=== PATIENT | male | born 1990 | race Caucasian/White ===

== ENCOUNTER 2016-10-03 09:55 | Inpatient (IN) | payer BC, OTHER ==
[~2016-10-03 09:55] MED LIST: DEXAMETHASONE SOD PHOSPHATE INJ 4 MG/1 ML VIAL ONE; ONDANSETRON HCL INJ/PF 4 MG/2 ML SDV ONE; ROCURONIUM BROMIDE INJ 50 MG/5 ML VIAL IV ONE; SUCCINYLCHOLINE CHLORIDE INJ 200 MG/10 ML VIAL ONE
--- NOTE | 2016-10-03 10:06 | ER Document Report ---
ED Medical Screen (RME) - General Chief Complaint: Abdominal Pain Stated Complaint: STOMACH PAIN Notes: 25 yo male c/o bilat flank pain followed by epigastric pain since last night. no fever, + nausea, no vomiting or diarrhea. no urinary symptoms. Abdomen soft, no guarding TRAVEL OUTSIDE OF THE [place] IN LAST 30 DAYS: No - Related Data Allergies/Adverse Reactions: amoxicillin Adverse Reaction (Verified 10/03/16 09:58) Past Medical History - Social History Drug Abuse: None Renal/ Medical History: Denies: Hx Peritoneal Dialysis
[2016-10-03 10:23] LABS: ABSOLUTE EOSINOPHILS # (AUTO) 0.2 10^3/uL (0.0-0.6); ABSOLUTE LYMPHOCYTES (AUTO) 1.1 10^3/uL (0.5-4.7); ABSOLUTE MONOCYTES (AUTO) 0.6 10^3/uL (0.1-1.4); ABSOLUTE NEUT (AUTO) 10.2 10^3/uL (1.7-8.2); BASOPHILS % (AUTO) 0.3 % (0-2); EOSINOPHILS % (AUTO) 1.9 % (0-6); HEMATOCRIT 45.4 % (37.9-51.0); HEMOGLOBIN 15.2 g/dL (13.5-17.0); HGB HCT DIFFERENCE 0.2; LYMPHOCYTES % (AUTO) 9.2 % (13-45); MEAN CORPUSCULAR HEMOGLOBIN 29.2 pg (27.0-33.4); MEAN CORPUSCULAR HGB CONC 33.5 g/dL (32.0-36.0); MEAN CORPUSCULAR VOLUME 87 fl (80-97); MONOCYTES % (AUTO) 5.2 % (3-13); RED BLOOD COUNT 5.23 10^6/uL (4.35-5.55); RED CELL DISTRIBUTION WIDTH 13.5 % (11.5-14.0); SEGMENTED NEUTROPHILS % (AUTO) 83.4 % (42-78); WHITE BLOOD COUNT 12.2 10^3/uL (4.0-10.5)
[2016-10-03 10:35] LABS: ALANINE AMINOTRANSFERASE 28 U/L (21-72); ALBUMIN 4.6 g/dL (3.5-5.0); ALKALINE PHOSPHATASE 72 U/L (38-126); ANION GAP 11 (5-19); ASPARTATE AMINO TRANSFERASE 21 U/L (17-59); BILIRUBIN,DIRECT 0.1 mg/dL (0.0-0.4); BILIRUBIN,TOTAL 0.6 mg/dL (0.2-1.3); BLOOD UREA NITROGEN 19 mg/dL (7-20); CALCIUM 9.4 mg/dL (8.4-10.2); CARBON DIOXIDE 27 mmol/L (22-30); CHLORIDE 102 mmol/L (98-107); GLUCOSE 98 mg/dL (75-110); POTASSIUM 4.2 mmol/L (3.6-5.0); SODIUM 139.5 mmol/L (137-145); TOTAL PROTEIN 7.2 g/dL (6.3-8.2)
--- NOTE | 2016-10-03 12:25 | ER Document Report ---
ED General - General Chief Complaint: Abdominal Pain Stated Complaint: STOMACH PAIN Mode of Arrival: Ambulatory Information source: Patient Notes: 25-year-old male presents with complaints of epigastric abdominal pain with bilateral flank pain. Patient denies any fevers or chills nausea vomiting or diarrhea. Patient denies any gastric reflux TRAVEL OUTSIDE OF THE [place] IN LAST 30 DAYS: No - HPI Onset: Yesterday Onset/Duration: Persistent Quality of pain: Achy Severity: Mild Pain Level: 1 Associated symptoms: None Exacerbated by: Denies Relieved by: Denies Similar symptoms previously: No Recently seen / treated by doctor: No - Related Data Allergies/Adverse Reactions: amoxicillin Adverse Reaction (Verified 10/03/16 09:58) Past Medical History - Social History Smoking Status: Current Every Day Smoker Cigarette use (# per day): Yes Chew tobacco use (# tins/day): No Smoking Education Provided: No Drug Abuse: None Family History: Reviewed & Not Pertinent Patient has suicidal ideation: No Patient has homicidal ideation: No Renal/ Medical History: Denies: Hx Peritoneal Dialysis Review of Systems - Review of Systems Notes: REVIEW OF SYSTEMS: CONSTITUTIONAL : Denies fever, chills, or sweats. Denies recent illness. EENT: Denies eye, ear, throat, or mouth pain or symptoms. Denies nasal or sinus congestion or discharge. Denies throat, tongue, or mouth swelling or difficulty swallowing. CARDIOVASCULAR: Denies chest pain. Denies palpitations or racing or irregular heart beat. Denies ankle edema. RESPIRATORY: Denies cough, cold, or chest congestion. Denies shortness of breath, difficulty breathing, or wheezing. GASTROINTESTINAL: Admits to epigastric and bilateral flank pain GENITOURINARY: Denies difficulty urinating, painful urination, burning, frequency, blood in urine, or discharge. MUSCULOSKELETAL: Denies back or neck pain or stiffness. Denies joint pain or swelling. SKIN: Denies rash, lesions or sores. HEMATOLOGIC : Denies easy bruising or bleeding. LYMPHATIC: Denies swollen, enlarged glands. NEUROLOGICAL: Denies confusion or altered mental status. Denies passing out or loss of consciousness. Denies dizziness or lightheadedness. Denies headache. Denies weakness or paralysis or loss of use of either side. Denies problems with gait or speech. Denies sensory loss, numbness, or tingling. Denies seizures. PSYCHIATRIC: Denies anxiety or stress. Denies depression, suicidal ideation, or homicidal ideation. ALL OTHER SYSTEMS REVIEWED AND NEGATIVE. Dictation was performed using [employer] voice recognition software PHYSICAL EXAMINATION: GENERAL: Well-appearing, well-nourished and in no acute distress. HEAD: Atraumatic, normocephalic. EYES: Pupils equal round and reactive to light, extraocular movements intact, sclera anicteric, conjunctiva are normal. ENT: Nares patent, oropharynx clear without exudates. Moist mucous membranes. NECK: Normal range of motion, supple without lymphadenopathy LUNGS: Breath sounds clear to auscultation bilaterally and equal. No wheezes rales or rhonchi. HEART: Regular rate and rhythm without murmurs ABDOMEN: Soft, nontender, nondistended abdomen. No guarding, no rebound. No masses appreciated. Musculoskeletal: Normal range of motion, no pitting or edema. No cyanosis. NEUROLOGICAL: Cranial nerves grossly intact. Normal speech, normal gait. Normal sensory, motor exams PSYCH: Normal mood, normal affect. SKIN: Warm, Dry, normal turgor, no rashes or lesions noted. Course - Re-evaluation Re-evalutation: 10/03/16 12:25 Physical examination notes no significant abnormality, patient notes no CVA tenderness. Urinalysis is pending 10/03/16 14:09 ct concerning for acute appendicitis. , dr graham consulted i talked iwth patient and family member, they request dr sinha, dr sinha paged 10/03/16 14:21 - Laboratory Result Diagrams: 10/03/16 10:10 10/03/16 10:10 Laboratory results interpreted by me: 10/03/16 10/03/16 10:10 12:10 WBC 12.2 H Seg Neutrophils % 83.4 H Lymphocytes % 9.2 L Absolute Neutrophils 10.2 H Urine Protein 30 H - Diagnostic Test Radiology reviewed: Image reviewed, Reports reviewed Discharge - Discharge Clinical Impression: Appendicitis Qualifiers: Appendicitis type: acute appendicitis Acute appendicitis type: with generalized peritonitis Qualified Code(s): K35.2 - Acute appendicitis with generalized peritonitis Condition: Stable Disposition: ADMITTED INPATIENT Admitting Provider: Jen Unit Admitted: Surgical Floor
[2016-10-03 12:26] LABS: AMORPHOUS SEDIMENT,URINE TRACE /HPF; APPEARANCE,URINE SLIGHTLY-CLOUDY; BILIRUBIN,URINE NEGATIVE (NEGATIVE); GLUCOSE, URINE NEGATIVE (NEGATIVE); KETONES,URINE NEGATIVE (NEGATIVE); LEUKOCYTE ESTERASE,URINE NEGATIVE (NEGATIVE); NITRITE,URINE NEGATIVE (NEGATIVE); PROTEIN,URINE 30 mg/dL (NEGATIVE); URINE SPECIFIC GRAVITY 1.034; UROBILINOGEN,URINE NEGATIVE mg/dL (<2.0)
[2016-10-03] MEDS ORDERED: LIDOCAINE 2% VISCOUS SOLN 20 ML UDCUP PO ONE (12:39)
[2016-10-03] MEDS ORDERED: MAG HYDROX/AL HYDROX/SIMETH SUSP 30 ML UDCUP PO ONE (12:39)
[2016-10-03] MEDS ORDERED: METOCLOPRAMIDE HCL ORAL SOLN 10 MG/10 ML UDCUP PO ONE (12:39)
[2016-10-03] MEDS ORDERED: ONDANSETRON HCL 8 MG TABLET PO ONE (13:23)
[2016-10-03] MEDS ORDERED: NORMAL SALINE 1000 ML 1,000 ML IV ONE (14:48)
[2016-10-03] MEDS ORDERED: ERTAPENEM SODIUM INJ 1 GM VIAL IV ONE (14:48)
--- NOTE | 2016-10-03 15:39 | HISTORY AND PHYSICAL E ---
History and Physical NAME: LUISITO DE LEON : 1990 AGE: 25Y ADMITTED: 10/03/2016 ROOM: REASON FOR ADMISSION: Acute appendicitis. HISTORY OF PRESENT ILLNESS: This 25-year-old male was in his usual state of health until approximately midnight last night when he developed epigastric pain with associated nausea and vomiting today x3. The patient had no fever, chills or change in bowel habits. The patient's pain continued to worsen as it started out as 1-2 and now is up to 8. The patient, as he said, upon arriving to the emergency room he vomited bilious material x3. The patient's last meal was last night, although he had 2 gummy bears and had a bottle of water approximately 2 hours ago. The patient underwent laboratory evaluation after examination revealing some epigastric tenderness and his white count was 12.2, hemoglobin was 15.2, hematocrit was 45.4, and his chemistries were within normal limits. The patient underwent a CT scan of the abdomen which revealed a dilated appendix with a small appendicolith. There was some old stranding of the adjacent fat and the appendix measured 13 mm in diameter. For these reasons surgical consultation was requested. PAST MEDICAL HISTORY: The patient has no history of diabetes mellitus, hypertension, cardiac, renal, pulmonary, liver disease or bleeding tendencies. No history of anesthesia problems in the family. ALLERGIES: The patient is allergic to PENICILLIN. REVIEW OF SYSTEMS: The patient has no symptoms referable to the ear, nose, and throat, respiratory or cardiovascular systems. Gastrointestinal symptoms are as per history of present illness. The patient denies any genitourinary, musculoskeletal, integumentary, lymphatic, endocrine or psychiatric symptoms. SOCIAL HISTORY: The patient has no history of drug or alcohol use. Denies tobacco use. PHYSICAL EXAMINATION: GENERAL: Reveals a 25-year-old male who is obese, normally nourished, otherwise normally developed, in no acute distress. VITAL SIGNS: Blood pressure 110/76, pulse 80, respirations 20, temperature 98.9. HEENT: There is no conjunctival pallor or scleral icterus. Mucous membranes are moist and pink. NECK: Supple without nodes or masses of thyroid, JVD or bruits. Trachea is midline. RESPIRATORY: Chest wall shows good excursions. Lungs are clear anteriorly with good entry bilaterally. CARDIOVASCULAR: S1 and S2 are normal without murmurs or gallops. ABDOMEN: Obese, soft, with mild tenderness in the right lower quadrant McBurney point with deep palpation. There is no hernia or bruits. No organomegaly or masses. EXTREMITIES: Show full range of motion. IMPRESSION: Acute appendicitis. PLAN: The patient is to be taken to the operating room shortly for laparoscopic appendectomy. DICTATING PHYSICIAN: ZOIE ROMO M.D. [id number] PHY#: [id number] ID: [id number] JOB#: [id number] ACCT: [id number] cc:Alfred MARKHAM MD
[2016-10-03] MEDS ORDERED: PHENYTOIN SODIUM INJ/PF 100 MG/2 ML SDV ONE (15:54)
[2016-10-03] MEDS ORDERED: HYDROMORPHONE HCL INJ/PF 2 MG/ML AMPULE ONE (15:55)
[2016-10-03] MEDS ORDERED: MIDAZOLAM 2 MG/2 ML INJ ONE (16:43)
[2016-10-03] MEDS ORDERED: FENTANYL CITRATE INJ/PF 250 MCG/5 ML AMPULE ONE (16:43)
[2016-10-03] MEDS ORDERED: PROPOFOL INJ 200 MG/20 ML VIAL IV ONE (16:43)
[2016-10-03] MEDS ORDERED: MORPHINE SULFATE 10 MG/ML INJ ONE (16:44)
[2016-10-03] MEDS ORDERED: BUPIVACAINE HCL 0.5 % INJ/PF 30 ML SDV ONE (17:01)
[2016-10-03] MEDS ORDERED: PROMETHAZINE HCL INJ 25 MG/1 ML VIAL IV PRN ×2 (18:08)
[2016-10-03] MEDS ORDERED: FENTANYL CITRATE INJ/PF 100 MCG/2 ML AMPUL IV PRN ×3 (18:08)
[2016-10-03] MEDS ORDERED: MEPERIDINE HCL/PF INJ 25 MG/1 ML DISP.SYRIN IV PRN (18:08)
[2016-10-03] MEDS ORDERED: MORPHINE SULFATE 10 MG/ML INJ IV PRN ×2 (18:08→19:36)
[2016-10-03] MEDS ORDERED: DIPHENHYDRAMINE HCL 50 MG/ML VIAL IV PRN (18:08)
[2016-10-03] MEDS ORDERED: DEXTROSE 5%-LACTATED RINGERS 1,000 ML IV PRN (19:32)
--- NOTE | 2016-10-03 20:28 | OPERATIVE REPORT E ---
Operative Report NAME: LUISITO DE LEON : 1990 AGE: 25Y DATE OF SURGERY: 10/03/2016 ROOM: 415 PREOPERATIVE DIAGNOSIS: Acute appendicitis. POSTOPERATIVE DIAGNOSIS: Purulent appendicitis. OPERATION: Laparoscopic appendectomy. SURGEON: ZOIE ROMO M.D. ANESTHESIA: General. REPLACEMENT: Crystalloid. DRAINS: None. COMPLICATIONS: None. CONDITION: Stable. FINDINGS: The patient presented to the hospital with a 19-hour history of abdominal pain which began in the epigastrium. The patient then had radiation of the pain to the right lower quadrant. The patient was found to have a white blood cell count of 12,[address] scan was ordered which revealed acute appendicitis. At the time exploration, the patient was found to have purulent appendicitis. PROCEDURE: The patient was brought to the operating suite and placed in a supine position on the operating table. Monitoring devices were attached, IV sedation was administered, followed by the induction of general endotracheal anesthesia. The patient's abdomen was then prepped and draped in the usual sterile manner and then a timeout was achieved. After all concurred, an incision was made just below the umbilicus and carried through the skin and subcutaneous tissue down to the linea alba. Two 0-vicryl stay sutures were placed in the linea alba, and an incision was made between the 2 stay sutures. We then used grasped the peritoneum and an opening was made between the 2 clamps and the peritoneum was opened and the abdominal cavity was entered. Digital exploration was done to ensure that there no viscera were adherent to the anterior abdominal wall, and then the 10 mm Carrillo trocar was inserted and secured with 2-0 Vicryl stay sutures. We insufflated the abdomen with CO2 and then once this was completed, we place 1 suprapubic 5 mm trocar and 1 left lower quadrant 5 mm trocar. After placing the trocars, we identified easily the purulent appendix. Exudate was noted on the appendiceal wall. We then made an opening in the mesoappendix and the endoscopic ESTER was used, and we divided the mesoappendix. We then reloaded the endoscopic ESTER the we then divided the appendix from the cecal base along with a small amount of mesoappendix. After placing the appendix in the EndoBag and removal from the abdominal cavity, we noticed some bleeding in the abdomen and there was some bleeding from the staple line, and this was hemoclipped and cauterized. After adequate hemostasis was assured, we then irrigated the abdomen with normal saline and then removed all trocars under direct vision. We then closed the infraumbilical fascial site using continuous 0-Vicryl suture. Once this was done, we then closed all incisions using skin julius. The patient tolerated the procedure well. Sponge and instruments were correct. The patient was discharged to the PACU in stable condition. DICTATING PHYSICIAN: ZOIE ROMO M.D. [id number] PHY#: [id number] ID: [id number] JOB#: [id number] ACCT: [id number] cc:ZOIE ROMO M.D. >
[2016-10-03] MEDS: MORPHINE SULFATE 10 MG/ML INJ IV PRN (22:25)
[2016-10-03] MEDS: DEXTROSE 5%-LACTATED RINGERS 1,000 ML IV PRN (22:26)
[2016-10-04] MEDS: MORPHINE SULFATE 10 MG/ML INJ IV PRN ×2 (03:41→09:18)
[2016-10-04] MEDS: DEXTROSE 5%-LACTATED RINGERS 1,000 ML IV PRN (08:40)
--- NOTE | 2016-10-04 09:11 | PDOC PROGRESS REPORT ---
Subjective Progress Note for:: 10/04/16 Subjective:: Feel much better after the operation. Tolerating liquids well. Physical Exam Vital Signs: Temp Pulse Resp BP Pulse Ox 97.6 F 71 16 110/63 98 10/04/16 04:50 10/04/16 04:50 10/04/16 04:50 10/04/16 04:50 10/04/16 04:50 Intake & Output 10/03/16 10/04/16 10/05/16 06:59 06:59 06:59 Intake Total 4504 Output Total 1300 Balance 3204 Weight 144.3 kg General appearance: PRESENT: no acute distress, cooperative Respiratory exam: PRESENT: clear to auscultation cal Cardiovascular exam: PRESENT: RRR GI/Abdominal exam: PRESENT: other - Soft, nondistended, minimal tenderness. Clean dry and intact. Extremities exam: PRESENT: other - No swelling no tenderness. Results Impressions: Abdomen X-Ray 10/03/16 10:05 IMPRESSION: NO RADIOGRAPHIC EVIDENCE FOR ACUTE ABDOMINAL DISEASE. Abdomen/Pelvis CT 10/03/16 13:11 IMPRESSION: Acute appendicitis. Surgical consultation is recommended. Assessment & Plan - Diagnosis (1) Appendicitis Qualifiers: Appendicitis type: acute appendicitis Acute appendicitis type: with generalized peritonitis Qualified Code(s): K35.2 - Acute appendicitis with generalized peritonitis Is this a current diagnosis for this admission?: YesPlan: Status post laparoscopic appendectomy. Patient looks good. We'll discharge patient home. Follow-up with [facility] next week.
--- NOTE | 2016-10-04 09:22 | DISCHARGE SUMMARY E ---
Discharge Summary NAME: LUISITO DE LEON : 1990 AGE: 25Y ADMITTED: 10/03/2016 DISCHARGED: 10/04/2016 DISCHARGE DIAGNOSIS: Appendicitis. PROCEDURE PERFORMED DURING HOSPITALIZATION: Laparoscopic appendectomy performed by Dr. Shashi Li on 10/03/2016. HOSPITAL COURSE: The patient underwent the above-mentioned surgery. He did well postoperatively. He was feeling much better and was tolerating a diet. The patient is now being discharged to home in good condition. He will follow up with [facility] next week. He was encouraged to stay active at home but avoid strenuous activity. He may follow a regular diet. DISCHARGE MEDICATIONS: Percocet 1 p.o. every 4 hours p.r.n. pain. DICTATING PHYSICIAN: ANDRES BATISTA M.D. [id number] PHY#: [id number] ID: [id number] JOB#: [id number] ACCT: [id number] cc:Crescencio GRIFFITHS M.D. >
[2016-10-04 09:26] VITALS: BP 109/58
== END 2016-10-04 11:22 | disposition home or self-care (01) | DRG 340 ==
LOC: ER 09:55 → EH 15:46 → 4N 19:30
PROVIDERS: ADMIT Surgery; ATTEND Surgery
PROC: 0DTJ4ZZ Resection of Appendix, Percutaneous Endoscopic Approach (ICD-10-PCS; principal; 2016-10-03 16:30)
DX: K35.2 Acute appendicitis with generalized peritonitis (principal); E66.9 Obesity, unspecified; Z68.39 Body mass index [BMI] 39.0-39.9, adult; F17.210 Nicotine dependence, cigarettes, uncomplicated; Z88.0 Allergy status to penicillin; Z88.1 Allergy status to other antibiotic agents
CPT/HCPCS: 36415; 74020; 74176; 80053; 81001; 83690; 840; 85025; 88304; 96365; 99285; J0330; J1100; J1170; J1335; J2250; J2270; J2405; J2704; J3010; J3490; J7030; S0119

== ENCOUNTER 2017-11-15 19:52 | Emergency (ER) | payer BC ==
[2017-11-15 20:02] VITALS: BP 142/100
--- NOTE | 2017-11-15 20:06 | ER Document Report ---
ED Wound - General Chief Complaint: Wound Recheck Stated Complaint: ABSCESS Time Seen by Provider: 11/15/17 19:57 Mode of Arrival: Ambulatory Information source: Patient, [facility] Records Notes: This 26-year-old male patient comes emergency room for a dressing change. He had an abscess incision and drainage done earlier today on his mid upper back near the neck. The dressing came off while he was at home. His mother place a 2 x 2 gauze in the wound and 4 x 4 dressings over it. The patient reports that he had previously had an incision and drainage of an abscess done, incision was not large enough and it had to be redone today. TRAVEL OUTSIDE OF THE [place] IN LAST 30 DAYS: No - Related Data Allergies/Adverse Reactions: amoxicillin Adverse Reaction (Verified 10/03/16 09:58) Past Medical History - General Information source: Patient, [facility] Records - Social History Smoking Status: Never Smoker Cigarette use (# per day): No Chew tobacco use (# tins/day): No Smoking Education Provided: No Frequency of alcohol use: Occasional Drug Abuse: None Occupation: [employer] Lives with: Parents Family History: Reviewed & Not Pertinent - Medical History Medical History: Negative Past Surgical History: Reports: Hx Appendectomy Review of Systems - Review of Systems Constitutional: No symptoms reported EENT: No symptoms reported Cardiovascular: No symptoms reported Respiratory: No symptoms reported Gastrointestinal: No symptoms reported Genitourinary: No symptoms reported Musculoskeletal: No symptoms reported Skin: See HPI Hematologic/Lymphatic: No symptoms reported Neurological/Psychological: No symptoms reported Physical Exam - Vital signs Vitals: Temp Pulse Resp BP Pulse Ox 99.1 F 106 H 18 142/100 H 98 11/15/17 20:01 11/15/17 20:01 11/15/17 20:01 11/15/17 20:01 11/15/17 20:01 Interpretation: Hypertensive - General General appearance: Appears well, Alert In distress: None - HEENT Head: Normocephalic, Atraumatic Eyes: Normal Pupils: PERRL - Respiratory Respiratory status: No respiratory distress - Cardiovascular Rhythm: Regular - Abdominal Inspection: Normal - Back Back: Other - Mid back the top of the T-spine is a transversely oriented elliptical excision area. There is a blood soaked 2 x 2 gauze in the wound. The wound is slightly oozing blood. There is minimal erythema to the surrounding skin. - Extremities General upper extremity: Normal inspection General lower extremity: Normal inspection - Neurological Neuro grossly intact: Yes - Psychological Associated symptoms: Normal affect, Normal mood - Skin Skin Temperature: Warm Skin Moisture: Dry Skin Color: Normal Course - Re-evaluation Re-evalutation: 11/15/17 20:07 The patient's blood pressure is elevated when checked initially today. It has been that high on his visit last year for appendicitis, and later was considerably lower. He will be advised to recheck his blood pressure a few times over the next few days and follow-up with his primary care provider if it remains elevated. - Vital Signs Vital signs: Temp Pulse Resp BP Pulse Ox 99.1 F 106 H 18 142/100 H 98 11/15/17 20:01 11/15/17 20:01 11/15/17 20:01 11/15/17 20:01 11/15/17 20:01 Discharge - Discharge Clinical Impression: Encounter for surgical wound dressing change High blood pressure Qualifiers: Hypertension type: unspecified Qualified Code(s): I10 - Essential (primary) hypertension Condition: Stable Disposition: HOME, SELF-CARE Additional Instructions: Your blood pressure was a little elevated today when first checked. It was similarly elevated when you checked in for your appendicitis last year. You should check your blood pressure over the next few days, and if it remains elevated, follow-up with your primary care provider. Leave the wound dressing intact for the next 2 days, then remove the dressing and the packing and pore peroxide into the wound a few times a daily for 1-2 days. Then you should be able to allow the wound cavity to fill in on its own. Follow-up with your doctor for wound checks as needed. RETURN TO THE EMERGENCY ROOM IF ANY NEW OR WORSENING SYMPTOMS.
[2017-11-15] MEDS ORDERED: IBUPROFEN 800 MG TABLET PO ONE (20:32)
== END 2017-11-15 20:40 | disposition home or self-care (01) ==
LOC: ER 19:52
DX: Z48.01 Encounter for change or removal of surgical wound dressing (principal); I10 Essential (primary) hypertension; L02.212 Cutaneous abscess of back [any part, except buttock and flank]
CPT/HCPCS: 99282